=== PATIENT | female | born 1940 | race Caucasian/White ===

== ENCOUNTER 2017-11-04 08:24 | Emergency (ER) | payer BC, OTHER ==
[2017-11-04 08:34] VITALS: BMI 27.1
--- NOTE | 2017-11-04 08:52 | PDOC ---
History of Present Illness - General Chief Complaint: Pain, Acute Stated Complaint: ABD PAIN Time Seen by Provider: 11/04/17 08:52 - History of Present Illness Initial Comments: 11/04/17 08:52 Ms. Patton is a 77 yo female w/ pmh of HTN and HLD, appendectomy, and cholecystectomy who presents complaining of a 2 day history of constipation. She reports that she was last feeling at her baseline Wednesday morning. She ate some eggs for breakfast and 5 minutes later had to carmichael to the bathroom. She reports she had a bowel movement at this time but felt like "not enough came out " at this time. She has since felt full of stool and has only intermittent small and loose bowel movements since. Ms. Patton reports that 2 years ago she was admitted for a similar problem although she had experienced 3 days of nausea and vomiting at that time before presentation. Prior exam required nasal decompression. At this time Ms. Patton says she feels great, however, accepting for vague abdominal discomfort. The patient denies chest pain, shortness of breath, headache and dizziness. Denies fever, chills, nausea, vomit, and diarrhea. Denies dysuria, frequency, urgency and hematuria. Allergies: Acetaminophen, oxycodone Past History - Past Medical History Allergies/Adverse Reactions: Allergies Allergy/AdvReac Type Severity Reaction Status Date / Time acetaminophen [From Percocet] AdvReac Nausea Verified 11/04/17 08:34 oxycodone HCl [From Percocet] AdvReac Nausea Verified 11/04/17 08:34 Home Medications: Ambulatory Orders Aspirin [ASA -] 81 mg PO DAILY 11/12/15 Hydrochlorothiazide 25 mg PO DAILY 11/12/15 Omeprazole [Prilosec] 20 mg PO DAILY 11/12/15 Simvastatin [Zocor -] 40 mg PO HS 11/12/15 Ciprofloxacin [Cipro -] 500 mg PO BID #14 tablet 11/04/17 Metronidazole [Flagyl] 500 mg PO TID #21 capsule 11/04/17 Anemia: No Asthma: No Cancer: No Cardiac Disorders: No CVA: No COPD: No CHF: No Dementia: No Diabetes: No GI Disorders: No Disorders: No HTN: Yes Hypercholesterolemia: Yes Liver Disease: No Seizures: No Thyroid Disease: No - Surgical History Abdominal Surgery: No Appendectomy: Yes Cardiac Surgery: No Cholecystectomy: Yes Lung Surgery: No Neurologic Surgery: No Orthopedic Surgery: No - Immunization History Immunization Up to Date: Yes - Suicide/Smoking/Psychosocial Hx Smoking Status: No Smoking History: Never smoked Have you smoked in the past 12 months: No Number of Cigarettes Smoked Daily: 0 Cigars Per Day: 0 Hx Alcohol Use: No Drug/Substance Use Hx: No Hx Substance Use Treatment: No Review of Systems - Review of Systems Comments:: 11/04/17 08:52 GENERAL/CONSTITUTIONAL: No fever or chills. No weakness. HEAD, EYES, EARS, NOSE AND THROAT: No change in vision. No ear pain or discharge. No sore throat. CARDIOVASCULAR: No chest pain or shortness of breath RESPIRATORY: No cough, wheezing, or hemoptysis. GASTROINTESTINAL: No nausea, vomiting, diarrhea or constipation. GENITOURINARY: No dysuria, frequency, or change in urination. MUSCULOSKELETAL: No joint or muscle swelling or pain. No neck or back pain. SKIN: No rash NEUROLOGIC: No headache, vertigo, loss of consciousness, or change in strength/ sensation. ENDOCRINE: No increased thirst. No abnormal weight change HEMATOLOGIC/LYMPHATIC: No anemia, easy bleeding, or history of blood clots. ALLERGIC/IMMUNOLOGIC: No hives or skin allergy. *Physical Exam - Vital Signs Last Vital Signs Temp Pulse Resp BP Pulse Ox 98.0 F 72 18 113/50 98 11/04/17 08:30 11/04/17 08:30 11/04/17 08:30 11/04/17 08:30 11/04/17 08:30 - Physical Exam Comments: 11/04/17 08:52 GENERAL: Awake, alert, and fully oriented, in no acute distress HEAD: No signs of trauma, normocephalic, atraumatic EYES: PERRLA, EOMI, sclera anicteric, conjunctiva clear ENT: Auricles normal inspection, hearing grossly normal, nares patent, oropharynx clear without exudates. Moist mucosa NECK: Normal ROM, supple, no lymphadenopathy, JVD, or masses LUNGS: No distress, speaks full sentences, clear to auscultation bilaterally HEART: Regular rate and rhythm, normal S1 and S2, no murmurs, rubs or gallops, peripheral pulses normal and equal bilaterally. ABDOMEN: +Non-specific generalized abdominal discomfort with paplpation. Soft, nontender, normoactive bowel sounds. No guarding, no rebound. No masses EXTREMITIES: Normal inspection, Normal range of motion, no edema. No clubbing or cyanosis. NEUROLOGICAL: Cranial nerves II through XII grossly intact. Normal speech, normal gait, no focal sensorimotor deficits SKIN: Warm, Dry, normal turgor, no rashes or lesions noted. ED Treatment Course - LABORATORY CBC & Chemistry Diagram: 11/04/17 10:00 11/04/17 10:00 Medical Decision Making - Medical Decision Making 11/04/17 10:57 Ms. Patton is a 77 yo female w/ pmh as described who presents w/ constipation without nausea/vomiting. Given patient's prior ileus admission, flat and upright XR sent for evaluation. XR revealed constipation only. Given abdominal tenderness, CT abdomen ordered w/ basic labs for further evaluation. 11/04/17 13:04 CT Abdomen negative for SBO. Acute colitis suggested. Patient given treatment in ER and Rx sent to home for cipro/flagyl. 11/04/17 13:18 Patient understands and verbalized agreement with plan and was given mag citrate to drink at home for symptomatic relief. Discharging. Patient will f/u with GI for further evaluation. *DC/Admit/Observation/Transfer Diagnosis at time of Disposition: Colitis - Discharge Dispostion Disposition: HOME - Referrals Referrals: Bertha Ramos MD [Primary Care Provider] - Tacos Keenan DO [Staff Physician] - - Patient Instructions Printed Discharge Instructions: DI for Colitis Additional Instructions: Please return if any increase in pain, fever, chills, or other concerning symptoms. Follow-up with GI as discussed for further evaluation and take proscriptions as written. Follow-up with Gastroenterology for further evaluation. - Post Discharge Activity
[2017-11-04] MEDS ORDERED: MAGNESIUM CITRATE 300 ML BOTTLE PO ONE ×2 (09:48→13:18)
[2017-11-04] MEDS ORDERED: MAGNESIUM CITRATE 300 ML BOTTLE ONE (09:50)
--- NOTE | 2017-11-04 10:06 | PDOC ---
Attending Attestation - Resident Resident Name: Vicente Macias - ED Attending Attestation I have performed the following: I have examined & evaluated the patient, The case was reviewed & discussed with the resident, I agree w/resident's findings & plan, Exceptions are as noted - HPI HPI: 11/04/17 10:03 77 F with h/o HTN, HLD presenting to ED with 2 days of abdominal pain. Pt states that the pain began shortly after eating breakfast 2 days ago. She reports colicky lower abdominal pain. She has the sensation that she needs to have a BM, but when she goes, she states she is only able to pass a small amount of stool. Denies diarrhea. Denies abdominal distention. Denies N/V. Denies F/C. Pt reports that she had a similar episode a few years ago and was diagnosed with ileus. Pt has had prior cholecystectomy and appendectomy. - Physicial Exam PE: 11/04/17 10:05 "GENERAL: Awake, alert, and fully oriented, in no acute distress HEAD: No signs of trauma EYES: PERRLA, EOMI, sclera anicteric, conjunctiva clear ENT: Auricles normal inspection, hearing grossly normal, nares patent, oropharynx clear without exudates. Moist mucosa NECK: Nontender, no stepoffs, Normal ROM, supple, no lymphadenopathy, JVD, or masses LUNGS: Breath sounds equal, clear to auscultation bilaterally. No wheezes, and no crackles HEART: Regular rate and rhythm, normal S1 and S2, no murmurs, rubs or gallops ABDOMEN: + LLQ TTP, no rebound/guarding, no distention EXTREMITIES: Normal range of motion, no edema. No clubbing or cyanosis. No cords, erythema, or tenderness NEUROLOGICAL: Cranial nerves II through XII intact. 5/5 strength and sensation in all extremities, Normal speech, normal gait, normal cerebellar function SKIN: Warm, Dry, normal turgor, no rashes or lesions noted. " - Medical Decision Making 11/04/17 10:06 77 F with LLQ abdominal pain x 2 days. Possible colitis vs diverticulitis. Also consider constipation. Pt without signs of obstructive process on exam, no h/o N /V. - Labs - CTAP 11/04/17 13:41 CT shows acute colitis. Pt reassessed - is well appearing with normal vitals. Minimal abdominal tenderness. Pt tolerating PO without issue. Stable for DC with course of cipro/flagyl. I discussed the physical exam findings, ancillary test results and final diagnoses with the patient. I answered all of the patient's questions. The patient was satisfied with the care received and felt comfortable with the discharge plan and treatment plan. The patient agrees to follow up with the primary care physician within 24-72 hours.
[2017-11-04 10:34] LABS: ALBUMIN 3.5 g/dl (3.4-5.0); ALK PHOS 71 U/L (45-117); ANION GAP 7 (8-16); BILIRUBIN,TOTAL 1.3 mg/dL (0.2-1.0); BLOOD UREA NITROGEN 21 mg/dL (7-18); CALCIUM 8.4 mg/dL (8.5-10.1); CHLORIDE 106 mmol/L (98-107); CO2 29 mmol/L (21-32); CREATININE 0.6 mg/dL (0.55-1.02); GLUCOSE,RANDOM 96 mg/dL (74-106); SGPT/ALT 14 U/L (12-78); SODIUM 142 mmol/L (136-145); TOT PROT 6.5 g/dl (6.4-8.2)
[2017-11-04 10:38] LABS: BASO % 0.6 % (0-2.0); EOS % 3.1 % (0-4.5); HEMATOCRIT 37.1 % (32.4-45.2); HEMOGLOBIN 12.8 GM/dL (10.7-15.3); LYMPH % 19.5 % (8-40); MCH 31.4 pg (25.7-33.7); MCHC 34.4 g/dl (32.0-36.0); MEAN CELL VOLUME 91.2 fl (80-96); MEAN PLT VOLUME 8.3 fl (7.5-11.1); MONO % 9.9 % (3.8-10.2); NEUT % 66.9 % (42.8-82.8); PLATELET COUNT 247 K/MM3 (134-434); RBC 4.07 M/mm3 (3.60-5.2); RDW 13.1 % (11.6-15.6)
[2017-11-04 10:42] LABS: POTASSIUM 3.8 mmol/L (3.5-5.1); SGOT/AST 18 U/L (15-37)
[2017-11-04] MEDS ORDERED: CIPROFLOXACIN 500 MG TABLET (RESTRICTED TO ID) PO ONE (13:10)
[2017-11-04] MEDS ORDERED: metroNIDAZOLE 250 MG TABLET PO ONE (13:11)
[2017-11-04] MEDS ORDERED: metroNIDAZOLE 250 MG TABLET ONE (13:29)
[2017-11-04 13:41] VITALS: BP 144/70; PULSE 68; TEMP 98.6
== END 2017-11-04 14:13 | disposition home or self-care (01) ==
LOC: JER 08:24
DX: K52.9 Noninfective gastroenteritis and colitis, unspecified (principal); I10 Essential (primary) hypertension; E78.5 Hyperlipidemia, unspecified; Z79.82 Long term (current) use of aspirin; Z88.5 Allergy status to narcotic agent
CPT/HCPCS: 36415; 74019-TC-FY; 74177-TC; 80053; 85025; 99282-25

== ENCOUNTER 2018-08-30 13:52 | Emergency (ER) | payer BC, OTHER ==
[2018-08-30 14:16] VITALS: BP 130/50; PULSE 69; TEMP 98.1; BMI 25.7
--- NOTE | 2018-08-30 14:25 | PDOC ---
History of Present Illness - General Chief Complaint: Injury Stated Complaint: FALL Time Seen by Provider: 08/30/18 14:15 History Source: Patient Exam Limitations: No Limitations - History of Present Illness Initial Comments: 08/30/18 14:26 turned quickly, tripped and fell onto outstretched right hand. Complaints of pain to her wrist 08/30/18 14:26 Occurred: reports: just prior to arrival, this afternoon Severity: reports: mild, moderate Pain Location: reports: upper extremity (right wrist) Method of Injury: Yes: direct blow, fall Modifying Factors: improves with: cold therapy Loss of Consciousness: no loss of consciousness Associated Symptoms (Fall): denies symptoms Past History - Travel Traveled outside of the country in the last 30 days: No Close contact w/someone who was outside of country & ill: No - Past Medical History Allergies/Adverse Reactions: Allergies Allergy/AdvReac Type Severity Reaction Status Date / Time acetaminophen [From Percocet] AdvReac Nausea Verified 08/30/18 14:10 oxycodone HCl [From Percocet] AdvReac Nausea Verified 08/30/18 14:10 Home Medications: Ambulatory Orders Aspirin [ASA -] 81 mg PO DAILY 11/12/15 Hydrochlorothiazide 25 mg PO DAILY 11/12/15 Omeprazole [Prilosec] 20 mg PO DAILY 11/12/15 Simvastatin [Zocor -] 40 mg PO HS 11/12/15 Anemia: No Asthma: No Cancer: No Cardiac Disorders: No CVA: No COPD: No CHF: No Dementia: No Diabetes: No GI Disorders: No Disorders: No HTN: Yes Hypercholesterolemia: Yes Liver Disease: No Seizures: No Thyroid Disease: No - Surgical History Abdominal Surgery: No Appendectomy: Yes Cardiac Surgery: No Cholecystectomy: Yes Lung Surgery: No Neurologic Surgery: No Orthopedic Surgery: No - Immunization History Immunization Up to Date: Yes - Suicide/Smoking/Psychosocial Hx Smoking Status: No Smoking History: Never smoked Have you smoked in the past 12 months: No Number of Cigarettes Smoked Daily: 0 Cigars Per Day: 0 Hx Alcohol Use: No Drug/Substance Use Hx: No Hx Substance Use Treatment: No Review of Systems - Review of Systems Able to Perform ROS?: Yes Is the patient limited Tuvaluan proficient: Yes Constitutional: Yes: Symptoms Reported, See HPI HEENTM: Yes: Symptoms Reported, Nose Congestion Respiratory: Yes: See HPI. No: Symptoms reported Musculoskeletal: Yes: Symptoms Reported, See HPI, Joint Pain, Joint Swelling Integumentary: Yes: Symptoms Reported All Other Systems: Reviewed and Negative *Physical Exam - Vital Signs Last Vital Signs Temp Pulse Resp BP Pulse Ox 98.1 F 69 16 130/50 L 98 08/30/18 14:10 08/30/18 14:10 08/30/18 14:10 08/30/18 14:10 08/30/18 14:10 - Physical Exam General Appearance: Yes: Nourished, Appropriately Dressed, Apparent Distress, Mild Distress HEENT: positive: NANCY, Normal ENT Inspection, TMs Normal, Pharynx Normal Neck: positive: Supple. negative: Tender Musculoskeletal: positive: Decreased Range of Motion (tEnder to distal aspect of radius and ulna,. Unable to supinate and pronate. Neurovascular intact to fingers). negative: Normal Inspection, Vertebral Tenderness Extremity: positive: Normal Capillary Refill. negative: Normal Inspection, Normal Range of Motion Integumentary: positive: Normal Color, Dry, Warm, Pale Neurologic: positive: data storage specialist II-XII NML intact, Fully Oriented, Alert, Normal Mood/ Affect Moderate Sedation - Procedure Monitoring Vital Signs: Procedure Monitoring Vital Signs Temperature 98.1 F 08/30/18 14:10 Pulse Rate 69 08/30/18 14:10 Respiratory Rate 16 08/30/18 14:10 Blood Pressure 130/50 L 08/30/18 14:10 O2 Sat by Pulse Oximetry (%) 98 08/30/18 14:10 Progress Note - Progress Note Progress Note: Fractured distal radius, Ortho-Glass splint placed, sling and will follow up with orthopedist *DC/Admit/Observation/Transfer Diagnosis at time of Disposition: Distal radius fracture, right Qualifiers: Encounter type: initial encounter Fracture type: closed Fracture morphology: unspecified fracture morphology Qualified Code(s): S52.501A - Unspecified fracture of the lower end of right radius, initial encounter for closed fracture - Discharge Dispostion Disposition: HOME Condition at time of disposition: Stable Decision to Admit order: No - Referrals Referrals: Brady Roa DO [Staff Physician] - Bertha Ramos MD [Primary Care Provider] - Franki Johnston MD [Staff Physician] - - Patient Instructions Printed Discharge Instructions: DI for Wrist Fracture Additional Instructions: Rest, ice to area on and off for 15 minutes 4-6 times a day Avoid heavy lifting or exercise until pain and swelling is resolved or until further directed Keep area highly elevated to reduce swelling Use splints/Chong wrap as directed Followup with orthopedist in one to 2 days if not improving, if significantly improved may wait one week for followup with orthopedist May use ibuprofen 2-200 mg tablets every 6 hours as needed for pain - Post Discharge Activity Forms/Work/School Notes: Back to Work
== END 2018-08-30 14:59 | disposition home or self-care (01) ==
LOC: JERFT 13:52
PROC: 2W3CX1Z Immobilization of Right Lower Arm using Splint (ICD-10-PCS; principal; 2018-08-30)
DX: S52.501A Unspecified fracture of the lower end of right radius, initial encounter for closed fracture (principal); W01.0XXA Fall on same level from slipping, tripping and stumbling without subsequent striking against object, initial encounter; Y93.89 Activity, other specified; Y92.89 Other specified places as the place of occurrence of the external cause; Y99.8 Other external cause status
CPT/HCPCS: 29125; 73110-TC-RT-FY; 99281-25

== ENCOUNTER 2020-07-20 16:24 | Emergency (ER) | payer OTHER ==
[2020-07-20 16:33] VITALS: BP 124/48; PULSE 80; TEMP 98.3; BMI 25.7
[2020-07-20 18:11] LABS: BASO % 0.1 % (0-2.0); EOS % 0.1 % (0-4.5); HEMATOCRIT 41.5 % (32.4-45.2); HEMOGLOBIN 13.6 GM/dL (10.7-15.3); LYMPH % 23.9 % (8-40); MCH 29.6 pg (25.7-33.7); MCHC 32.9 g/dl (32.0-36.0); MEAN CELL VOLUME 90.1 fl (80-96); MEAN PLT VOLUME 8.4 fl (7.5-11.1); MONO % 10.9 % (3.8-10.2); PLATELET COUNT 230 K/MM3 (134-434); RBC 4.61 M/mm3 (3.60-5.2); RDW 13.5 % (11.6-15.6); WHITE BLOOD COUNT 4.1 K/mm3 (4.0-10.0)
[2020-07-20 18:19] LABS: INR 1.06 (0.83-1.09)
[2020-07-20 18:21] LABS: ACTIVATED PTT 30.6 SECONDS (25.2-36.5)
[2020-07-20 18:33] LABS: CHLORIDE 107 mmol/L (98-107); POTASSIUM 3.7 mmol/L (3.5-5.1); SODIUM 144 mmol/L (136-145)
[2020-07-20 18:35] LABS: ALBUMIN 3.6 g/dl (3.4-5.0); ANION GAP 5 MMOL/L (8-16); BLOOD UREA NITROGEN 21.1 mg/dL (7-18); CO2 32 mmol/L (21-32); GLUCOSE,RANDOM 141 mg/dL (74-106)
[2020-07-20 18:38] LABS: CREATININE 0.7 mg/dL (0.55-1.3); SGOT/AST 25 U/L (15-37); SGPT/ALT 25 U/L (13-61)
[2020-07-20 18:40] LABS: BILIRUBIN,TOTAL 0.9 mg/dL (0.2-1); TOT PROT 6.9 g/dl (6.4-8.2)
[2020-07-20 18:41] LABS: ALK PHOS 80 U/L (45-117)
[2020-07-20] MEDS ORDERED: ACETAMINOPHEN 325 MG TABLET (FP) ONE (18:56)
== END 2020-07-20 19:10 | disposition home or self-care (01) ==
LOC: JER 16:24
DX: R53.83 Other fatigue (principal); Z11.59 Encounter for screening for other viral diseases
CPT/HCPCS: 36415; 71045-TC-FY; 80053; 82550; 84484; 85025; 85610; 85730; 93005; 93010; 99284-25

== ENCOUNTER 2021-01-10 08:22 | Day surgery (SDC) | payer OTHER ==
[2021-01-07 09:31] VITALS: BMI 25.9
[2021-01-10] MEDS ORDERED: ONDANSETRON 4 MG/2 ML VIAL IVPUSH PRN (11:00)
[2021-01-10] MEDS ORDERED: ACETAMINOPHEN 500 MG TABLET (FP) PO PRN (11:00)
[2021-01-10] MEDS ORDERED: LACTATED RINGERS SOLUTION 1,000 ML IV SCH (11:00)
[2021-01-10] MEDS ORDERED: PROPOFOL 20 ML ONE (11:10)
[2021-01-10] MEDS ORDERED: LIDOCAINE HCL/PF 2% SDV 5ML VIAL ONE (11:10)
[2021-01-10] MEDS ORDERED: ceFAZolin SODIUM 1 GM VIAL ONE (11:10)
[2021-01-10] MEDS ORDERED: MIDAZOLAM HCL 2 MG/2 ML SINGLE DOSE VIAL ONE (11:10)
[2021-01-10] MEDS ORDERED: BUPIVACAINE HCL/PF 2.5 MG/ML - 30 ML VIAL IJ ONE (11:13)
[2021-01-10] MEDS ORDERED: DEXAMETHASONE SOD PHOSPHATE 4 MG/1 ML VIAL ONE (11:43)
[2021-01-10] MEDS ORDERED: KETOROLAC TROMETHAMINE 30 MG/1 ML VIAL ONE (11:55)
[2021-01-10 13:19] VITALS: TEMP 97.8
[2021-01-10 15:23] VITALS: BP 148/66; PULSE 61
== END 2021-01-10 14:30 | disposition home or self-care (01) ==
LOC: FASU 08:22
PROVIDERS: ATTEND Orthopaedic Surgery
PROC: 0SBC4ZZ Excision of Right Knee Joint, Percutaneous Endoscopic Approach (ICD-10-PCS; 2021-01-10)
PROC: 0SBC4ZZ Excision of Right Knee Joint, Percutaneous Endoscopic Approach (ICD-10-PCS; 2021-01-10)
PROC: 0SBC4ZZ Excision of Right Knee Joint, Percutaneous Endoscopic Approach (ICD-10-PCS; 2021-01-10)
PROC: 0SBC4ZZ Excision of Right Knee Joint, Percutaneous Endoscopic Approach (ICD-10-PCS; principal; 2021-01-10 11:47)
DX: S83.241A Other tear of medial meniscus, current injury, right knee, initial encounter (principal); S83.281A Other tear of lateral meniscus, current injury, right knee, initial encounter; M65.861 Other synovitis and tenosynovitis, right lower leg; S83.8X1A Sprain of other specified parts of right knee, initial encounter; M23.8X1 Other internal derangements of right knee; X58.XXXA Exposure to other specified factors, initial encounter; Y92.9 Unspecified place or not applicable; Y93.9 Activity, unspecified
CPT/HCPCS: 88304-TC; 94760

== ENCOUNTER 2021-07-12 13:10 | Emergency (ER) | payer OTHER ==
[2021-07-12] MEDS ORDERED: ONDANSETRON 4 MG/2 ML VIAL IVPUSH ONE (13:28)
[2021-07-12] MEDS ORDERED: LACTATED RINGERS SOLUTION 1,000 ML/1,000 ML INFUS.BAG IV SCH (13:30)
[2021-07-12 13:31] VITALS: BMI 26.6
[2021-07-12] MEDS ORDERED: ONDANSETRON 4 MG/2 ML VIAL ONE (13:45)
[2021-07-12 14:14] LABS: BASO % 2.1 % (0-2.0); EOS % 0.1 % (0-4.5); HEMATOCRIT 41.5 % (32.4-45.2); HEMOGLOBIN 14.1 GM/dl (10.7-15.3); LYMPH % 12.2 % (8-40); MCH 31.5 pg (25.7-33.7); MCHC 33.9 g/dl (32.0-36.0); MEAN CELL VOLUME 92.8 fl (80-96); MONO % 7.9 % (3.8-10.2); NEUT % 77.7 % (42.8-82.8); PLATELET COUNT 303 10^3/uL (134-434); RBC 4.47 M/mm3 (3.60-5.2); RDW 12.1 % (11.6-15.6); WHITE BLOOD COUNT 7.6 K/mm3 (4.0-10.8)
[2021-07-12 14:24] LABS: ALBUMIN 4.1 g/dl (3.4-5.0); ALK PHOS 67 U/L (45-117); ANION GAP 13 MMOL/L (8-16); BILIRUBIN,TOTAL 2.3 mg/dl (0.2-1); CALCIUM 9.2 mg/dl (8.5-10); CHLORIDE 102 mmol/L (98-107); CO2 29 mmol/L (21-32); CREATININE 0.8 mg/dl (0.55-1.3); GLUCOSE,RANDOM 101 mg/dl (74-106); SGOT/AST 21 U/L (15-37); SGPT/ALT 15 U/L (13-61); SODIUM 144 mmol/L (136-145); TOT PROT 6.9 g/dl (6.4-8.2)
[2021-07-12] MEDS ORDERED: SODIUM CHLORIDE 1,000 ML IV STA ×2 (14:43→16:59)
[2021-07-12 15:03] LABS: LIPASE 60 U/L (73-393)
[2021-07-12 18:27] LABS: EPITHELIAL CELLS FEW /hpf; URINE HYALINE CAST 0-2 /lpf
[2021-07-12 18:28] LABS: URINE MUCUS 2+
[2021-07-12 18:56] VITALS: BP 118/50; PULSE 82; TEMP 97.9
== END 2021-07-12 19:08 | disposition home or self-care (01) ==
LOC: FER 13:10
PROC: 3E033GC Introduction of Other Therapeutic Substance into Peripheral Vein, Percutaneous Approach (ICD-10-PCS; principal; 2021-07-12)
PROC: 3E0337Z Introduction of Electrolytic and Water Balance Substance into Peripheral Vein, Percutaneous Approach (ICD-10-PCS; 2021-07-12)
PROC: 3E0337Z Introduction of Electrolytic and Water Balance Substance into Peripheral Vein, Percutaneous Approach (ICD-10-PCS; 2021-07-12)
DX: R11.2 Nausea with vomiting, unspecified (principal)
CPT/HCPCS: 36415; 74177-TC; 76705-TC; 80053; 81003; 81015; 83690; 83735; 84484; 85025; 87086; 99285-25; C9803; Q9967; U0003; U0005

== ENCOUNTER 2022-01-23 18:07 | Emergency (ER) | payer OTHER ==
[2022-01-23 18:14] VITALS: BMI 26.7
[2022-01-23] MEDS ORDERED: SODIUM CHLORIDE 1,000 ML IV ONE (19:45)
[2022-01-23 19:51] VITALS: BP 172/56; PULSE 69; TEMP 98.3
[2022-01-23 20:20] LABS: HEMATOCRIT 34.3 % (32.4-45.2); HEMOGLOBIN 11.9 G/dL (10.7-15.3); MCH 31.9 pg (25.7-33.7); MCHC 34.8 g/dl (32.0-36.0); MEAN CELL VOLUME 91.8 fl (80-96); MEAN PLT VOLUME 7.8 fl (7.5-11.1); PLATELET COUNT 263.1 10^3/uL (134-434); RBC 3.74 10^6/uL (3.60-5.2); RDW 13.5 % (11.6-15.6); WHITE BLOOD COUNT 7.3 10^3/uL (4.0-10.8)
[2022-01-23 20:34] LABS: ANISOCYTOSIS 1+; PLATELET ESTIMATE ADEQUATE
[2022-01-23 20:36] LABS: ALBUMIN 3.9 g/dl (3.4-5.0); BILIRUBIN,TOTAL 1.1 mg/dl (0.2-1); TOT PROT 6.5 g/dl (6.4-8.2)
== END 2022-01-23 21:33 | disposition home or self-care (01) ==
LOC: FER 18:07
PROC: 3E0337Z Introduction of Electrolytic and Water Balance Substance into Peripheral Vein, Percutaneous Approach (ICD-10-PCS; principal; 2022-01-23)
DX: R55 Syncope and collapse (principal)
CPT/HCPCS: 36415; 70450-TC; 80053; 82550; 84484; 85025; 93005; 99285-25

== ENCOUNTER 2022-07-26 16:00 | Emergency (ER) | payer OTHER ==
[2022-07-26 16:11] VITALS: BP 144/64; PULSE 52; RESP 18; TEMP 98.6; BMI 26.7
[2022-07-26] MEDS ORDERED: CEPHALEXIN 250 MG/5 ML ORAL SUSPENSION PO ONE (16:20)
[2022-07-26] MEDS ORDERED: ACETAMINOPHEN 325 MG TABLET (FP) PO ONE (16:20)
[2022-07-26] MEDS ORDERED: CEPHALEXIN MONOHYDRATE 500 MG CAPSULE (UD) ONE (16:22)
[2022-07-26] MEDS ORDERED: ACETAMINOPHEN 325 MG TABLET (FP) ONE (16:22)
== END 2022-07-26 16:55 | disposition home or self-care (01) ==
LOC: FER 16:00
DX: L03.116 Cellulitis of left lower limb (principal); L60.0 Ingrowing nail
CPT/HCPCS: 99283-25

== ENCOUNTER 2023-03-03 21:48 | Emergency (ER) | payer OTHER ==
[2023-03-03 22:26] VITALS: BP 175/83; PULSE 45; RESP 17; TEMP 98.3; BMI 26.7
[2023-03-03] MEDS ORDERED: ACETAMINOPHEN 1000 MG/100 ML BAG IVPB ONE ×2 (22:41→22:44)
[2023-03-03] MEDS ORDERED: SODIUM CHLORIDE 1,000 ML IV STA (22:42)
[2023-03-03] MEDS ORDERED: SODIUM CHLORIDE 250 ML IV STA (22:44)
[2023-03-03] MEDS ORDERED: ACETAMINOPHEN INJECTION 100 ML IVPB ONE (22:58)
[2023-03-03 23:15] LABS: INR 1.05 (0.83-1.09); PROTHROMBIN TIME (PATIENT) 12.2 SEC (9.7-13.0)
[2023-03-03 23:19] LABS: EPITHELIAL CELLS FEW /hpf
[2023-03-03 23:23] LABS: ALBUMIN 4.1 g/dl (3.4-5.0); BILIRUBIN,TOTAL 0.9 mg/dl (0.2-1); BLOOD UREA NITROGEN 22.8 mg/dl (7-18); CALCIUM 9.2 mg/dl (8.5-10.1); CREATININE 0.7 mg/dl (0.6-1.3); POTASSIUM 4.1 mmol/L (3.5-5.1); SGOT/AST 20.7 U/L (15-37); TOT PROT 6.3 g/dl (6.4-8.2)
[2023-03-03 23:27] LABS: HEMOGLOBIN 13.2 G/dL (10.7-15.3); MCH 31.2 pg (25.7-33.7); MCHC 33.1 g/dl (32.0-36.0); MEAN PLT VOLUME 8.5 fl (7.5-11.1); PLATELET COUNT 247.2 10^3/uL (134-434); RBC 4.25 10^6/uL (3.60-5.2); RDW 14.2 % (11.6-15.6); WHITE BLOOD COUNT 6.6 10^3/uL (4.0-10.8)
[2023-03-03 23:32] LABS: PLATELET ESTIMATE ADEQUATE
== END 2023-03-04 00:47 | disposition home or self-care (01) ==
LOC: FER 21:48
PROC: 3E033NZ Introduction of Analgesics, Hypnotics, Sedatives into Peripheral Vein, Percutaneous Approach (ICD-10-PCS; principal; 2023-03-03)
PROC: 3E0337Z Introduction of Electrolytic and Water Balance Substance into Peripheral Vein, Percutaneous Approach (ICD-10-PCS; 2023-03-03)
DX: R42 Dizziness and giddiness (principal); R51.9 Headache, unspecified; E86.0 Dehydration; R26.81 Unsteadiness on feet
CPT/HCPCS: 36415; 70450-TC; 71045-TC-FY; 80053; 81003; 81015; 85027; 85610; 87086; 93005; 99285-25

== ENCOUNTER 2024-02-20 20:01 | Emergency (ER) | payer OTHER ==
[2024-02-20 20:08] VITALS: BP 122/56; PULSE 72; RESP 20; TEMP 98.4; BMI 25.5
[2024-02-20] MEDS ORDERED: ACETAMINOPHEN INJECTION 100 ML IVPB ONE (20:56)
[2024-02-20 21:34] LABS: BASO % 0.5 % (0-2.0); EOS % 1.8 % (0-4.5); HEMATOCRIT 36.4 % (32.4-45.2); HEMOGLOBIN 12.2 GM/dL (10.7-15.3); INR 1.04 (0.83-1.09); LYMPH % 31.3 % (8-40); MCH 30.4 pg (25.7-33.7); MCHC 33.4 g/dl (32.0-36.0); MEAN CELL VOLUME 91.1 fl (80-96); MEAN PLT VOLUME 7.8 fl (7.5-11.1); MONO % 12.8 % (3.8-10.2); NEUT % 53.6 % (42.8-82.8); PLATELET COUNT 286 10^3/uL (134-434); PROTHROMBIN TIME (PATIENT) 11.9 SEC (9.7-13.0); RDW 14.7 % (11.6-15.6); WHITE BLOOD COUNT 6.5 K/mm3 (4.0-10.0)
[2024-02-20] MEDS: SODIUM CHLORIDE 0.9% 500 ML INFUS.BAG IV ONE (21:35)
[2024-02-20 21:36] LABS: ACTIVATED PTT 31.5 SECONDS (25.2-36.5)
[2024-02-20] MEDS: ACETAMINOPHEN 1000 MG/100 ML BAG IVPB ONE (21:36)
[2024-02-20 21:38] LABS: EPI CELLS 10 /uL (0-25.1); HYALINE CASTS 0 /uL (0-3.1); PH,URINE 7.5 (5.0-8.0); URINE APPEARANCE CLEAR; URINE BACTERIA 63 /uL (0-1359); URINE BILIRUBIN NEGATIVE (NEGATIVE); URINE COLOR YELLOW; URINE GLUCOSE (UA) NEGATIVE (NEGATIVE); URINE KETONE NEGATIVE (NEGATIVE); URINE LEUK ESTERASE 1+ (NEGATIVE); URINE NITRITE NEGATIVE (NEGATIVE); URINE PROTEIN NEGATIVE (NEGATIVE); URINE RBC 9 /uL (0-23.9); URINE WBC 72 /uL (0-25.8)
[2024-02-20 21:47] LABS: POTASSIUM 4.3 mmol/L (3.5-5.1)
[2024-02-20 21:49] LABS: ALBUMIN 3.5 g/dl (3.4-5.0); CALCIUM 9.1 mg/dL (8.5-10.1)
[2024-02-20 21:50] LABS: BLOOD UREA NITROGEN 28.6 mg/dL (7-18)
[2024-02-20 21:54] LABS: BILIRUBIN,TOTAL 0.8 mg/dL (0.2-1); TOT PROT 6.4 g/dl (6.4-8.2)
[2024-02-20] MEDS ORDERED: SULFAMETHOXAZOLE/TRIMETHOPRIM 800MG/160MG D.S. TABLET ONE (22:33)
[2024-02-20] MEDS: SULFAMETHOXAZOLE/TRIMETHOPRIM 800MG/160MG D.S. TABLET PO ONE (22:36)
== END 2024-02-20 23:01 | disposition home or self-care (01) ==
LOC: JER 20:01
PROC: 3E033NZ Introduction of Analgesics, Hypnotics, Sedatives into Peripheral Vein, Percutaneous Approach (ICD-10-PCS; principal; 2024-02-20)
DX: N39.0 Urinary tract infection, site not specified (principal); R19.7 Diarrhea, unspecified; Z20.822 Contact with and (suspected) exposure to COVID-19
CPT/HCPCS: 0241U-QW; 36415; 71045-TC-FY; 80053; 81003; 84484; 85025; 85610; 85730; 87086; 93005; 93010; 99285-25; J0131

== ENCOUNTER 2024-11-24 06:16 | Day surgery (SDC) | payer OTHER ==
[2024-11-21 11:44] VITALS: BMI 25.9
[2024-11-24] MEDS: LIDOCAINE HCL 1% PRESERVATIVE FREE - 30ML VIAL IJ ONE ×4 (10:32)
[2024-11-24 12:54] VITALS: BP 134/58; PULSE 74; RESP 16; TEMP 97.6
[2024-11-24] MEDS ORDERED: ACETAMINOPHEN 500 MG TABLET (FP) PO PRN (21:01)
== END 2024-11-24 12:23 | disposition home or self-care (01) ==
LOC: JASU-SURG 06:16
PROVIDERS: ATTEND Pain Medicine Pain Medicine
PROC: 01HY3MZ Insertion of Neurostimulator Lead into Peripheral Nerve, Percutaneous Approach (ICD-10-PCS; principal; 2024-11-24 10:00)
DX: G89.4 Chronic pain syndrome (principal); M25.512 Pain in left shoulder
CPT/HCPCS: 64555; C1778

== ENCOUNTER 2025-01-05 06:28 | Day surgery (SDC) | payer OTHER ==
[2025-01-03 15:21] VITALS: BMI 25.9
[2025-01-05] MEDS: LIDOCAINE 1% P/F 10 MG/ML VIAL INF ONE (12:35)
[2025-01-05 13:02] VITALS: BP 136/61; PULSE 57; RESP 16; TEMP 97.6
[2025-01-05] MEDS ORDERED: ACETAMINOPHEN 500 MG TABLET (FP) PO PRN (13:44)
== END 2025-01-05 13:34 | disposition home or self-care (01) ==
LOC: JASU-SURG 06:28
PROVIDERS: ATTEND Pain Medicine Pain Medicine
PROC: 01HY3MZ Insertion of Neurostimulator Lead into Peripheral Nerve, Percutaneous Approach (ICD-10-PCS; principal; 2025-01-05 11:30)
DX: G89.4 Chronic pain syndrome (principal); M25.512 Pain in left shoulder
CPT/HCPCS: 64555; C1778

== ENCOUNTER 2025-01-07 09:25 | Emergency (ER) | payer OTHER ==
[2025-01-07 10:05] VITALS: RESP 16; TEMP 98.2; BMI 26.1
[2025-01-07] MEDS ORDERED: ONDANSETRON 4 MG/2 ML VIAL ONE (10:42)
[2025-01-07] MEDS ORDERED: ACETAMINOPHEN INJECTION 100 ML ONE (10:42)
[2025-01-07] MEDS: SODIUM CHLORIDE 0.9% 500 ML INFUS.BAG IV ONE (10:45)
[2025-01-07] MEDS: ONDANSETRON 4 MG/2 ML VIAL IVPUSH ONE (10:50)
[2025-01-07 10:54] LABS: ABSOLUTE IMMATURE GRANULOCYTES 0.02 x10^3/uL (0.0-0.031); BASOPHILS # 0.03 x10^3/uL (0.01-0.08); EOSINOPHIL % 0.2 % (0.7-5.8); EOSINOPHILS # 0.02 x10^3/uL (0.04-0.36); HEMATOCRIT 35.3 % (34.1-44.9); HEMOGLOBIN 11.8 g/dL (11.2-15.7); MCHC 33.4 g/dl (32.2-35.5); MEAN CELL VOLUME 95.1 fl (79.4-94.8); MEAN PLT VOLUME 9.6 fl (9.4-12.3); MONOCYTE # 1.33 x10^3/uL (0.24-0.86); MONOCYTE % 14.7 % (4.7-12.5); PLATELET COUNT 243 x10^3/uL (182-369); RDW 12.4 % (12.5-17.0)
[2025-01-07] MEDS: ACETAMINOPHEN 1000 MG/100 ML BAG IVPB ONE (10:56)
[2025-01-07 11:03] LABS: ALBUMIN 3.5 g/dl (3.4-5.0); BILIRUBIN,TOTAL 1.8 mg/dl (0.2-1); CALCIUM 8.4 mg/dl (8.5-10.1); CREATININE 0.7 mg/dl (0.6-1.3); POTASSIUM 3.8 mmol/L (3.5-5.1); TOT PROT 5.7 g/dl (6.4-8.2)
[2025-01-07 13:12] VITALS: BP 131/62; PULSE 72
== END 2025-01-07 13:32 | disposition home or self-care (01) ==
LOC: FER 09:25
DX: S00.11XA Contusion of right eyelid and periocular area, initial encounter (principal); W19.XXXA Unspecified fall, initial encounter
CPT/HCPCS: 0241U-QW; 36415; 70450-TC; 71250-TC; 72125-TC; 80053; 81003; 81015; 84484; 85025; 87086; 87186; 93005; 99285-25; J0131